=== PATIENT | male | born 1975 | race Caucasian/White ===

== ENCOUNTER → 2022-08-08 | Outpatient (CLI) | payer BC ==
[~2022-08-08] MED LIST: CEPHALEXIN250 M1 PO; CEPHALEXIN500 M1 PO; DULERA1 AR1 IH; FIORICET 325 MG1 TA1 PO; NO HOME MEDICATIONS; NORCO 325 MG-51 TAB PO; PRILOTC PO; RT ADVAIR 228 DISKUS IH; SINGULAIR 110 MG/TAB PO; TOPAMAX 25MG25 M1 PO; VENTOLIN0.09 MG IH
== END ==
LOC: COL.RAD 13:33
DX: J34.89 Other specified disorders of nose and nasal sinuses (principal); R42 Dizziness and giddiness
CPT/HCPCS: Q9967